=== PATIENT | female | born 1965 | race Caucasian/White ===

== ENCOUNTER 2017-04-27 22:09 | Emergency (ER) | payer MEDICARE, OTHER | END 2017-04-27 23:50 | disposition short-term general hospital (02) | LOC: ER 22:09 | DX: R53.1 Weakness (principal); I10 Essential (primary) hypertension; E03.9 Hypothyroidism, unspecified; F32.9 Major depressive disorder, single episode, unspecified; Z90.49 Acquired absence of other specified parts of digestive tract | CPT/HCPCS: 36415; 51702; 80307; 96365; 96376; G0480; J2997 ==